=== PATIENT | male | born 1985 | race Caucasian/White ===

== ENCOUNTER 2017-01-10 00:10 | Emergency (ER) | payer OTHER ==
[2017-01-10] MEDS ORDERED: DIPH/PERTUSS(ACELL)/TETANUS VAC/PF 0.5 ML SYR (>=10YO) IM ONE (00:11)
[2017-01-10] MEDS ORDERED: FENTANYL CITRATE INJ/PF 100 MCG/2 ML AMPUL IV ONE (00:11)
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
[2017-01-10] MEDS ORDERED: DIAZEPAM INJ 10 MG/2 ML DISP.SYRIN IV ONE (00:42)
[2017-01-10] MEDS ORDERED: HYDROMORPHONE HCL INJ/PF 2 MG/ML AMPULE IV ONE ×2 (01:42→02:28)
[2017-01-10 02:48] VITALS: BP 129/74
== END 2017-01-10 02:45 | disposition short-term general hospital (02) ==
LOC: ER 00:10
DX: T23.242A Burn of second degree of multiple left fingers (nail), including thumb, initial encounter (principal); X03.0XXA Exposure to flames in controlled fire, not in building or structure, initial encounter; F17.210 Nicotine dependence, cigarettes, uncomplicated
CPT/HCPCS: 96376; 99291; 90471; 96374; 96375; 90715; J3360; J3010; J1170